=== PATIENT | male | born 1965 | race Caucasian/White ===

== ENCOUNTER 2016-12-17 04:44 | Emergency (ER) | payer MEDICAID ==
[~2016-12-17] VITALS: Ht 177.8 cm; Wt 93.2 kg
[2016-12-17 05:47] LABS: APPEARANCE,URINE CLEAR (CLEAR); GLUCOSE, URINE (UA) NEGATIVE (NEGATIVE); KETONES,URINE NEGATIVE (NEGATIVE); LEUKOCYTE ESTERASE ,URINE NEGATIVE (NEGATIVE); OCCULT BLOOD,URINE MODERATE (NEGATIVE); PROTEIN,URINE NEGATIVE (NEGATIVE)
[2016-12-17 05:48] LABS: BASOPHILS % (AUTO) 0.4 % (0.0-2.0); EOSINOPHILS % (AUTO) 1.9 % (1.0-6.0); HEMATOCRIT 42.2 % (41-53); HEMOGLOBIN 14.4 g/dL (13.5-17.5); LYMPHOCYTES % (AUTO) 32.9 % (22.0-44.0); MEAN CORPUSCULAR HEMOGLOBIN 31.3 pg (26.0-34.0); MEAN CORPUSCULAR VOLUME 92 fL (80-100); MONOCYTES # (AUTO) 0.5 K/uL (0.1-1.0); MONOCYTES % (AUTO) 8.5 % (2.0-9.0); NEUTROPHILS # (AUTO) 3.4 K/uL (1.8-7.7); NEUTROPHILS % (AUTO) 56.3 % (40.0-70.0); PLATELET COUNT (AUTO) 261 K/uL (150-450); RED CELL DISTRIBUTION WIDTH 13.6 % (11.5-14.5); WHITE BLOOD COUNT (AUTO) 6.1 K/uL (4.5-11.0)
[2016-12-17 05:51] LABS: ANION GAP 8 mmol/L (8-16); CALCIUM, TOTAL 8.9 mg/dL (8.8-10.5); CARBON DIOXIDE 31 mmol/L (22-29); CHLORIDE 102 mmol/L (98-107); CREATININE 0.79 mg/dL (0.60-1.30); GLOMERULAR FILTR. RATE CALC > 60 mL/min (>60); POTASSIUM 3.9 mmol/L (3.5-5.1); SODIUM SERUM 141 mmol/L (136-145); UREA NITROGEN, BLOOD 11 mg/dL (7-18)
[2016-12-17 05:52] LABS: ADD UA MICROSCOPIC YES
[2016-12-17 05:57] LABS: ALANINE AMINOTRANSFERASE 20 U/L (12-78); ALBUMIN 3.6 g/dL (3.4-5.0); ASPARTATE AMINOTRANSFERASE 11 U/L (15-37); BILIRUBIN,TOTAL 0.4 mg/dL (0.1-1.0); CREATINE KINASE, TOTAL 44 U/L (39-308); TOTAL PROTEIN, SERUM 7.5 g/dL (6.4-8.2)
[2016-12-17 06:00] LABS: SQUAMOUS EPITHELIAL CELL,UR Rare /LPF (None Seen); WBC,URINE 0-2 /HPF (0-5)
[2016-12-17 06:33] VITALS: BP 140/79
== END 2016-12-17 06:57 | disposition home or self-care (01) ==
LOC: EMS 04:47
DX: R60.0 Localized edema (principal); G47.00 Insomnia, unspecified; E11.9 Type 2 diabetes mellitus without complications
CPT/HCPCS: 82962; 85651; 99284

== ENCOUNTER 2017-09-11 19:57 | Emergency (ER) | payer MEDICAID, OTHER ==
[~2017-09-11] VITALS: Ht 180.3 cm; Wt 100.0 kg
[2017-09-11 20:12] LABS: GLUCOSE,POINT OF CARE 248 MG/DL (70-110)
[2017-09-11] MEDS ORDERED: SODIUM CHLORIDE 0.9% 100 ML ONE (20:34)
[2017-09-11] MEDS ORDERED: IOVERSOL 350 MG/ML 100 ML VIAL ONE (20:34)
[2017-09-11 20:42] LABS: BASOPHILS % (AUTO) 1.3 % (0.0-2.0); EOSINOPHILS % (AUTO) 2.2 % (1.0-6.0); HEMATOCRIT 45.5 % (41-53); HEMOGLOBIN 15.9 g/dL (13.5-17.5); LYMPHOCYTES # (AUTO) 1.8 K/uL (1.0-4.8); LYMPHOCYTES % (AUTO) 25.9 % (22.0-44.0); MEAN CORPUSCULAR HEMOGLOBIN 31.7 pg (26.0-34.0); MEAN CORPUSCULAR HGB CONC 34.8 G/dL (31.0-37.0); MEAN CORPUSCULAR VOLUME 91 fL (80-100); MONOCYTES # (AUTO) 0.7 K/uL (0.1-1.0); MONOCYTES % (AUTO) 9.8 % (2.0-9.0); NEUTROPHILS # (AUTO) 4.2 K/uL (1.8-7.7); NEUTROPHILS % (AUTO) 60.8 % (40.0-70.0); PLATELET COUNT (AUTO) 234 K/uL (150-450); RED CELL DISTRIBUTION WIDTH 13.7 % (11.5-14.5)
[2017-09-11 20:52] LABS: PROTHROMBIN TIME 10.1 SEC (9.4-11.6)
[2017-09-11 20:59] LABS: ANION GAP 7 mmol/L (8-16); CARBON DIOXIDE 29 mmol/L (22-29); CHLORIDE 101 mmol/L (98-107); CREATININE 0.83 mg/dL (0.60-1.30); GLOMERULAR FILTR. RATE CALC > 60 mL/min (>60); GLUCOSE,RANDOM 224 mg/dL (70-110); POTASSIUM 4.2 mmol/L (3.5-5.1); SODIUM SERUM 137 mmol/L (136-145); UREA NITROGEN, BLOOD 9 mg/dL (7-18)
[2017-09-11 21:15] LABS: ALANINE AMINOTRANSFERASE 28 U/L (12-78); ALBUMIN 3.4 g/dL (3.4-5.0); ALKALINE PHOSPHATASE 77 U/L (46-116); ASPARTATE AMINOTRANSFERASE 13 U/L (15-37); BILIRUBIN,TOTAL 0.4 mg/dL (0.1-1.0); CREATINE KINASE, TOTAL 54 U/L (39-308); TOTAL PROTEIN, SERUM 7.4 g/dL (6.4-8.2)
[2017-09-11] MEDS ORDERED: PredniSONE 20 MG TABLET PO ONE (22:00)
[2017-09-11] MEDS ORDERED: ValACYclovir HCL 500 MG TABLET PO ONE (22:00)
[2017-09-11 22:04] VITALS: BP 142/82
== END 2017-09-11 22:44 | disposition home or self-care (01) ==
LOC: EMS 19:58
DX: G51.0 Bell's palsy (principal); E11.9 Type 2 diabetes mellitus without complications; R79.1 Abnormal coagulation profile; Z83.3 Family history of diabetes mellitus
CPT/HCPCS: 36415; 70450; 70496; 71045; 80053; 82550; 82962; 84484; 85025; 85610; 85730; 93005; 99285; J7050; J7512; Q9967

== ENCOUNTER 2018-04-12 16:30 | Emergency (ER) | payer OTHER ==
[~2018-04-12] VITALS: Ht 180.3 cm; Wt 100.0 kg
[2018-04-12] MEDS ORDERED: GLIP10 PO (16:37)
[2018-04-12] MEDS ORDERED: ATOR40TA28 PO (16:37)
[2018-04-12] MEDS ORDERED: HTN PO (16:37)
[2018-04-12] MEDS ORDERED: METF-960 PO (16:37)
[2018-04-12 16:48] LABS: GLUCOSE,POINT OF CARE 265 MG/DL (70-110)
[2018-04-12] MEDS ORDERED: FLUORESCEIN SODIUM 1 MG STRIP OD ONE (19:15)
[2018-04-12] MEDS ORDERED: PROPARACAINE HCL 0.5% 15 ML OPHTHALMIC SOLUTION OD ONE (19:15)
[2018-04-12 19:35] VITALS: BP 128/80
== END 2018-04-12 20:02 | disposition home or self-care (01) ==
LOC: EMS 16:31
DX: H10.89 Other conjunctivitis (principal); B99.8 Other infectious disease; I10 Essential (primary) hypertension; E78.00 Pure hypercholesterolemia, unspecified; E11.9 Type 2 diabetes mellitus without complications; Z79.84 Long term (current) use of oral hypoglycemic drugs

== ENCOUNTER 2018-09-26 22:49 | Emergency (ER) | payer OTHER ==
[~2018-09-26] VITALS: Ht 180.3 cm; Wt 115.9 kg
[~2018-09-26 22:49] MED LIST: ATOR40TA28 PO; GLIP10 PO; HTN PO; METF-960 PO
[2018-09-26 23:39] LABS: GLUCOSE,POINT OF CARE 212 MG/DL (70-110)
[2018-09-26] MEDS ORDERED: METF-960 PO (23:39)
[2018-09-26] MEDS ORDERED: LOSA25TA41 PO (23:39)
[2018-09-27] MEDS ORDERED: HYDROCODONE/ACETAMINOPHEN 5-325 MG TABLET PO ONE (00:30)
[2018-09-27 01:22] VITALS: BP 123/56
== END 2018-09-27 01:51 | disposition home or self-care (01) ==
LOC: EMS 22:50
DX: E11.40 Type 2 diabetes mellitus with diabetic neuropathy, unspecified (principal); M79.89 Other specified soft tissue disorders; E78.00 Pure hypercholesterolemia, unspecified; I10 Essential (primary) hypertension; Z79.84 Long term (current) use of oral hypoglycemic drugs; Z79.899 Other long term (current) drug therapy
CPT/HCPCS: 93971

== ENCOUNTER 2018-10-06 22:02 | Emergency (ER) | payer OTHER ==
[~2018-10-06] VITALS: Ht 180.3 cm; Wt 102.3 kg
[~2018-10-06 22:02] MED LIST changes: -HTN PO; +LOSA25TA41 PO
[2018-10-06 22:08] VITALS: BP 135/76
[2018-10-06 22:19] LABS: GLUCOSE,POINT OF CARE 252 MG/DL (70-110)
[2018-10-06] MEDS ORDERED: GABAPENTIN 100 MG CAPSULE PO ONE (23:45)
== END 2018-10-07 00:06 | disposition home or self-care (01) ==
LOC: EMS 22:04
DX: E11.40 Type 2 diabetes mellitus with diabetic neuropathy, unspecified (principal); E11.9 Type 2 diabetes mellitus without complications; E78.00 Pure hypercholesterolemia, unspecified; I10 Essential (primary) hypertension; Z79.84 Long term (current) use of oral hypoglycemic drugs; Z76.0 Encounter for issue of repeat prescription

== ENCOUNTER 2018-11-14 18:54 | Emergency (ER) | payer OTHER ==
[~2018-11-14] VITALS: Ht 180.3 cm; Wt 102.3 kg
[~2018-11-14 18:54] MED LIST changes: -ATOR40TA28 PO; -GLIP10 PO; -LOSA25TA41 PO
[2018-11-14 19:13] LABS: GLUCOSE,POINT OF CARE 205 MG/DL (70-110)
[2018-11-14] MEDS ORDERED: LOSA25TA41 PO (19:15)
[2018-11-14] MEDS ORDERED: TraMADol HCL 50 MG TABLET PO ONE (21:30)
[2018-11-14 21:32] LABS: HEMATOCRIT 44.9 % (41-53); HEMOGLOBIN 14.9 g/dL (13.5-17.5); LYMPHOCYTES # (AUTO) 2.2 K/uL (1.0-4.8); LYMPHOCYTES % (AUTO) 35.2 % (22.0-44.0); MEAN CORPUSCULAR HEMOGLOBIN 30.9 pg (26.0-34.0); MEAN CORPUSCULAR HGB CONC 33.3 G/dL (31.0-37.0); MEAN CORPUSCULAR VOLUME 93 fL (80-100); MONOCYTES # (AUTO) 0.6 K/uL (0.1-1.0); NEUTROPHILS # (AUTO) 3.2 K/uL (1.8-7.7); NEUTROPHILS % (AUTO) 51.8 % (40.0-70.0); PLATELET COUNT (AUTO) 233 K/uL (150-450); RED BLOOD CELL COUNT(AUTO) 4.84 MIL/uL (4.50-5.90); RED CELL DISTRIBUTION WIDTH 13.3 % (11.5-14.5)
[2018-11-14 21:44] LABS: ANION GAP 7 mmol/L (8-16); CALCIUM, TOTAL 9.1 mg/dL (8.8-10.5); CARBON DIOXIDE 30 mmol/L (22-29); CHLORIDE 102 mmol/L (98-107); GLOMERULAR FILTR. RATE CALC > 60 mL/min (>60); GLUCOSE,RANDOM 193 mg/dL (70-110); POTASSIUM 3.8 mmol/L (3.5-5.1); SODIUM SERUM 139 mmol/L (136-145); UREA NITROGEN, BLOOD 14 mg/dL (7-18)
[2018-11-14 21:49] VITALS: BP 116/62
[2018-11-14 21:51] LABS: ALANINE AMINOTRANSFERASE 22 U/L (12-78); ALBUMIN 3.1 g/dL (3.4-5.0); ALKALINE PHOSPHATASE 84 U/L (46-116); ASPARTATE AMINOTRANSFERASE 14 U/L (15-37); B-TYPE NATRIURETIC PEPTIDE 13 pg/mL (0-100); BILIRUBIN,TOTAL 0.4 mg/dL (0.1-1.0); TOTAL PROTEIN, SERUM 6.8 g/dL (6.4-8.2)
== END 2018-11-14 22:30 | disposition home or self-care (01) ==
LOC: EMS 18:57
DX: E11.40 Type 2 diabetes mellitus with diabetic neuropathy, unspecified (principal); I10 Essential (primary) hypertension; E78.00 Pure hypercholesterolemia, unspecified; Z79.84 Long term (current) use of oral hypoglycemic drugs

== ENCOUNTER 2022-03-22 11:07 | Emergency (ER) | payer OTHER ==
[~2022-03-22] VITALS: Ht 180.3 cm; Wt 92.0 kg
[~2022-03-22 11:07] MED LIST changes: +LOSA-381 PO; +METF-1211 PO; -METF-960 PO
[2022-03-22 13:42] LABS: BASOPHILS % (AUTO) 1.1 % (0.0-2.0); EOSINOPHILS % (AUTO) 2.2 % (1.0-6.0); HEMATOCRIT 48.2 % (41-53); HEMOGLOBIN 16.2 g/dL (13.5-17.5); LYMPHOCYTES # (AUTO) 1.5 K/uL (1.0-4.8); LYMPHOCYTES % (AUTO) 22.9 % (22.0-44.0); MEAN CORPUSCULAR HEMOGLOBIN 31.1 pg (26.0-34.0); MEAN CORPUSCULAR HGB CONC 33.7 G/dL (31.0-37.0); MEAN CORPUSCULAR VOLUME 93 fL (80-100); MONOCYTES # (AUTO) 0.5 K/uL (0.1-1.0); MONOCYTES % (AUTO) 7.7 % (2.0-9.0); NEUTROPHILS # (AUTO) 4.3 K/uL (1.8-7.7); NEUTROPHILS % (AUTO) 66.1 % (40.0-70.0); PLATELET COUNT (AUTO) 220 K/uL (150-450); RED BLOOD CELL COUNT(AUTO) 5.21 MIL/uL (4.50-5.90); RED CELL DISTRIBUTION WIDTH 13.9 % (11.5-14.5)
[2022-03-22 13:49] LABS: ANION GAP 9 mmol/L (8-16); CALCIUM, TOTAL 8.9 mg/dL (8.8-10.5); CARBON DIOXIDE 26 mmol/L (22-29); CHLORIDE 103 mmol/L (98-107); CREATININE 0.66 mg/dL (0.60-1.30); GLUCOSE,RANDOM 152 mg/dL (70-110); POTASSIUM 4.1 mmol/L (3.5-5.1); SODIUM SERUM 138 mmol/L (136-145); UREA NITROGEN, BLOOD 11 mg/dL (7-18)
[2022-03-22 13:50] LABS: GLOMERULAR FILTR. RATE CALC > 60 mL/min (>60)
[2022-03-22 13:55] LABS: ALANINE AMINOTRANSFERASE 23 U/L (12-78); ALBUMIN 3.2 g/dL (3.4-5.0); ALKALINE PHOSPHATASE 85 U/L (46-116); ASPARTATE AMINOTRANSFERASE 13 U/L (15-37); BILIRUBIN,TOTAL 0.5 mg/dL (0.1-1.0)
[2022-03-22] MEDS ORDERED: DULA1.5P SQ (15:26)
[2022-03-22] MEDS ORDERED: METF-844 PO (15:26)
[2022-03-22] MEDS ORDERED: SITA100 PO (15:26)
[2022-03-22] MEDS ORDERED: DICLOFENAC SODIUM 1% 100 GM GEL [4GM] TP ONE (15:30)
[2022-03-22 15:55] VITALS: BP 122/72
== END 2022-03-22 16:37 | disposition home or self-care (01) ==
LOC: EMS 11:08
DX: M13.861 Other specified arthritis, right knee (principal); E11.9 Type 2 diabetes mellitus without complications; G62.9 Polyneuropathy, unspecified
CPT/HCPCS: 80053; 84484; 85025; 93005; 99285

== ENCOUNTER 2022-09-28 18:10 | Emergency (ER) | payer OTHER ==
[~2022-09-28] VITALS: Ht 180.3 cm; Wt 93.2 kg
[~2022-09-28 18:10] MED LIST changes: +DULA1.5P SQ; -METF-1211 PO; +METF-844 PO; +SITA100 PO
[2022-09-28 18:42] LABS: GLUCOMETER DEV NAME(LOC) ERT.5; GLUCOSE,POINT OF CARE 311 MG/DL (70-110)
[2022-09-28 19:17] LABS: BASOPHILS % (AUTO) 0.8 % (0.0-2.0); EOSINOPHILS % (AUTO) 2.6 % (1.0-6.0); HEMATOCRIT 47.9 % (41-53); LYMPHOCYTES # (AUTO) 1.3 K/uL (1.0-4.8); LYMPHOCYTES % (AUTO) 28.7 % (22.0-44.0); MEAN CORPUSCULAR HEMOGLOBIN 30.9 pg (26.0-34.0); MEAN CORPUSCULAR HGB CONC 33.5 G/dL (31.0-37.0); MEAN CORPUSCULAR VOLUME 92 fL (80-100); MONOCYTES # (AUTO) 0.6 K/uL (0.1-1.0); MONOCYTES % (AUTO) 13.2 % (2.0-9.0); NEUTROPHILS # (AUTO) 2.4 K/uL (1.8-7.7); NEUTROPHILS % (AUTO) 54.7 % (40.0-70.0); PLATELET COUNT (AUTO) 205 K/uL (150-450); RED BLOOD CELL COUNT(AUTO) 5.19 MIL/uL (4.50-5.90); RED CELL DISTRIBUTION WIDTH 13.9 % (11.5-14.5)
[2022-09-28 20:10] LABS: ANION GAP 9 mmol/L (8-16); CALCIUM, TOTAL 8.6 mg/dL (8.8-10.5); CARBON DIOXIDE 27 mmol/L (22-29); CHLORIDE 101 mmol/L (98-107); CREATININE 0.74 mg/dL (0.60-1.30); GLOMERULAR FILTR. RATE CALC > 60 mL/min (>60); GLUCOSE,RANDOM 329 mg/dL (70-110); POTASSIUM 3.9 mmol/L (3.5-5.1); SODIUM SERUM 137 mmol/L (136-145)
[2022-09-28 20:16] LABS: ALANINE AMINOTRANSFERASE 26 U/L (12-78); ALBUMIN 3.2 g/dL (3.4-5.0); ALKALINE PHOSPHATASE 90 U/L (46-116); ASPARTATE AMINOTRANSFERASE 13 U/L (15-37); BILIRUBIN,TOTAL 0.5 mg/dL (0.1-1.0); TOTAL PROTEIN, SERUM 6.9 g/dL (6.4-8.2)
[2022-09-28] MEDS ORDERED: SODIUM CHLORIDE 0.9% 1,000 ML IV ONE (20:30)
[2022-09-28 21:36] LABS: GLUCOMETER DEV NAME(LOC) ERT.5; GLUCOSE,POINT OF CARE 249 MG/DL (70-110)
[2022-09-28] MEDS ORDERED: CEPH-558 PO (21:47)
[2022-09-28 21:48] VITALS: BP 131/71
[2022-09-28] MEDS ORDERED: DOXY-354 PO (21:49)
[2022-09-28] MEDS ORDERED: CEPHALEXIN MONOHYDRATE 500 MG CAPSULE PO ONE (22:00)
[2022-09-28] MEDS ORDERED: DOXYCYCLINE HYCLATE 100 MG TABLET PO ONE (22:00)
[2022-09-28] MEDS ORDERED: SULFAMETHOX/TRIMETH DS 800-160 MG/TABLET PO ONE (22:00)
== END 2022-09-28 22:07 | disposition home or self-care (01) ==
LOC: EMS 18:10
DX: E11.65 Type 2 diabetes mellitus with hyperglycemia (principal)
CPT/HCPCS: 99284; 80053; 82962; 85025; 36415; J7030

== ENCOUNTER 2024-06-24 07:31 | Emergency (ER) | payer MEDICARE, OTHER ==
[~2024-06-24] VITALS: Ht 188 cm; Wt 113.6 kg
[~2024-06-24 07:31] MED LIST changes: +CEPH-558 PO; +DOXY-354 PO; -DULA1.5P SQ; -LOSA-381 PO; -METF-844 PO; -SITA100 PO
[2024-06-24 07:41] VITALS: BP 0/0; PULSE 0; RESP 0; O2SAT 0
== END 2024-06-24 10:41 ==
LOC: EMS 07:34
DX: I46.9 Cardiac arrest, cause unspecified (principal); E11.9 Type 2 diabetes mellitus without complications; Z66 Do not resuscitate
CPT/HCPCS: 99285; Z7502